=== PATIENT | male | born 1940 | race Caucasian/White ===

== ENCOUNTER 2018-10-20 14:15 | Outpatient (CLI) | payer MEDICARE, BC ==
--- NOTE | 2018-10-20 14:51 | RAD ---
CHEST TWO VIEWS: HISTORY: Cough and shortness of breath for several days with fever. FINDINGS: There are fairly prominent increased linear and interstitial parenchymal changes noted diffusely bila terally, somewhat more focally prominent in the right upper lobe and right lower lobe, certainly rais ing concern for the possibility of bilateral atypical pneumonia or pneumonitis. Certainly, some of t hese changes could be related to chronic interstitial lung disease. I would recommend consideration for treatment for pneumonia and then a short-term follow-up study in two to three weeks. No prior ex ams. IMPRESSION: Bilateral linear and interstitial parenchymal changes, somewhat more prominent in the right upper lob e and right lower lobe, raising concern for atypical pneumonia or pneumonitis. Treatment and followu p are suggested. POS: [facility]
== END 2018-10-20 14:16 | disposition home or self-care (01) ==
LOC: SCSRAD 14:15
PROVIDERS: ATTEND Family Medicine
DX: J18.0 Bronchopneumonia, unspecified organism (principal); R91.8 Other nonspecific abnormal finding of lung field
CPT/HCPCS: 71046

== ENCOUNTER 2024-02-20 03:06 | Inpatient (IN) | payer MEDICARE ==
[2024-02-20 03:40] LABS: #Basophils 0.04 10x3/uL (0.0-0.2); #Eosinophils Less than 0.03 10x3/uL (0.0-0.7); %Basophils 0.2 % (0.0-1.0); %Eosinophils 0.1 % (0.0-10.0); %Lymphocytes 15.3 % (21.0-51.0); %Monocytes 7.1 % (0.0-10.0); %Neutrophils 76.1 % (42.0-75.0); Hematocrit 25.7 % (42.0-52.0); Hemoglobin 7.9 g/dL (14.0-18.0); Mean Corpuscular HGB CONC 30.7 g/dL (32.0-36.0); Mean Platelet Volume 10.6 fL (7.4-10.4); Platelet Count 244 10x3/uL (130-400); RBC Distribution Width 21.3 % (11.5-14.5); Red Blood Cell (RBC) Count 2.47 mill/uL (4.70-6.10)
[2024-02-20 03:53] LABS: INR-International Normal Ratio 1.1; Prothrombin Time 14.5 sec (12.0-14.7)
[2024-02-20 03:54] LABS: PTT 30.5 sec (22.9-36.1)
[2024-02-20 03:59] LABS: Troponin I Less than 0.010 ng/mL (< 0.028)
[2024-02-20] MEDS ORDERED: Sodium Chloride 0.9% 100 ML ONE (04:11)
[2024-02-20] MEDS ORDERED: cefTRIAXone (ROCEPHIN) 2 GM VIAL ONE (04:11)
[2024-02-20 04:17] LABS: ALT (SGPT) 17 U/L (8-55); AST (SGOT) 28 U/L (5-34); Albumin 2.3 g/dL (3.4-4.8); Alkaline Phosphatase 292 U/L (40-110); Anion Gap 14 mmol/L (10-20); BUN (Urea Nitrogen) 13 mg/dL (8.4-25.7); Bilirubin, Total 0.5 mg/dL (0.2-1.2); Calc. Creatinine Clearance 0 mL/min (70-130); Calcium 6.9 mg/dL (7.8-10.44); Carbon Dioxide 22 mmol/L (23-31); Chloride 105 mmol/L (98-107); Estimated GFR 92; Globulin 2.3 g/dL (2.4-3.5); Glucose 218 mg/dL (83-110); Potassium 3.9 mmol/L (3.5-5.1); Protein, Total 4.6 g/dL (5.8-8.1); Sodium 137 mmol/L (136-145)
[2024-02-20] MEDS ORDERED: Azithromycin 500 MG VIAL ONE (04:29)
[2024-02-20] MEDS ORDERED: Acetaminophen 325 MG TAB PO PRN (05:50)
[2024-02-20] MEDS ORDERED: Ondansetron PF 4 MG/2 ML Vial IVP PRN (05:50)
[2024-02-20] MEDS ORDERED: Dextrose 50% Abboject 50 ML SYRINGE SLOW IVP PRN (05:51)
[2024-02-20] MEDS ORDERED: Dextrose 5% in Water 1,000 ML IV PRN (05:51)
[2024-02-20] MEDS ORDERED: Glucagon 1 MG/ML KIT IM PRN (05:51)
[2024-02-20] MEDS ORDERED: VANCOMYCIN IVPB PRN (05:52)
[2024-02-20] MEDS ORDERED: Ipratropium/Albuterol 3 ML NEB EZPAP PRN (07:17)
[2024-02-20 07:32] VITALS: BMI 22.3
[2024-02-20] MEDS: Insulin Lispro 100 UNIT/ML 10 ML VIAL SC PRN (08:14)
[2024-02-20] MEDS: guaiFENesin/DM ER PO SCH (08:15)
[2024-02-20] MEDS: Vancomycin (BATCH) 1.75 GM in Premix 1 BAG IVPB SCH (08:15)
[2024-02-20] MEDS: Enoxaparin 40 MG (0.4 mL) SYRINGE SC SCH (08:15)
[2024-02-20] MEDS: Pantoprazole DR 40 MG TAB PO SCH (08:15)
[2024-02-20] MEDS: Furosemide 20 MG (2 mL) VIAL SLOW IVP SCH (08:15)
[2024-02-20 09:34] LABS: Influenza A by NAA Not Detected (NotDetected); Influenza B by NAA Not Detected (NotDetected); SARS-CoV-2 NAA Rapid Test Not Detected (NotDetected)
[2024-02-20 10:04] LABS: Legionella Urinary Ag Negative (Negative); Strep pneumo Urine Ag POSITIVE (NEGATIVE)
[2024-02-20 10:19] LABS: Hematocrit 29.1 % (42.0-52.0); Hemoglobin 9.1 g/dL (14.0-18.0); Mean Corpuscular HGB CONC 31.3 g/dL (32.0-36.0); Mean Corpuscular Hemoglobin 32.6 pg (27.0-31.0); Mean Corpuscular Volume 104.3 fL (78.0-98.0); Mean Platelet Volume 10.3 fL (7.4-10.4); Platelet Count 233 10x3/uL (130-400); RBC Distribution Width 21.8 % (11.5-14.5); Red Blood Cell (RBC) Count 2.79 mill/uL (4.70-6.10)
[2024-02-20 10:42] LABS: Anisocytosis MARKED = >30 cells HPF (0-5); Band 5 % (5-11); Lymphocytes 4 % (21-51); Macrocytosis MODERATE=16-30 cells HPF (0-5); Monocytes 3 % (0-10); Neutrophil 87 % (42-75); Ovalocytes SLIGHT = 2-5 cells HPF (0-1); Platelet Adequacy Comment Platelets Normal; Polychromasia MODERATE = 3-4 cells HPF (0-2); Reactive Lymphocytes 1 % (0-10)
[2024-02-20] MEDS ORDERED: Iopamidol-370 76% 500 ML MDV (1 ML CHARGE) ONE (12:55)
[2024-02-20] MEDS: Ipratropium/Albuterol 3 ML NEB EZPAP SCH (13:00)
[2024-02-20 15:03] LABS: Campy jejuni + coli by PCR Negative (Negative); STEC Shiga Toxin 1+2 Negative (Negative); Salmonella spp. by PCR Negative (Negative); Shigella spp + EIEC by PCR Negative (Negative)
[2024-02-20] MEDS: Cefepime 2 GM in Sodium Chloride 0.9% 100 ML IVPB SCH (16:25)
[2024-02-20] MEDS ORDERED: Cefepime 1 GM in Sodium Chloride 0.9% 100 ML IVPB SCH (21:00)
[2024-02-20] MEDS: Vancomycin 1 GM in Premix 1 BAG IVPB SCH (21:09)
[2024-02-21 05:00] LABS: #Basophils Less than 0.03 10x3/uL (0.0-0.2); #Eosinophils Less than 0.03 10x3/uL (0.0-0.7); %Basophils 0.1 % (0.0-1.0); %Lymphocytes 10.3 % (21.0-51.0); %Monocytes 6.1 % (0.0-10.0); %Neutrophils 81.8 % (42.0-75.0); Hematocrit 24.4 % (42.0-52.0); Hemoglobin 7.6 g/dL (14.0-18.0); Mean Corpuscular HGB CONC 31.1 g/dL (32.0-36.0); Mean Corpuscular Hemoglobin 31.5 pg (27.0-31.0); Mean Corpuscular Volume 101.2 fL (78.0-98.0); Mean Platelet Volume 11.2 fL (7.4-10.4); Platelet Count 228 10x3/uL (130-400); RBC Distribution Width 21.2 % (11.5-14.5); Red Blood Cell (RBC) Count 2.41 mill/uL (4.70-6.10)
[2024-02-21 05:15] LABS: Vancomycin, Random 18.3 ug/mL (See Comment)
[2024-02-21 05:24] LABS: ALT (SGPT) 15 U/L (8-55); AST (SGOT) 19 U/L (5-34); Albumin 2.1 g/dL (3.4-4.8); Alkaline Phosphatase 265 U/L (40-110); Bilirubin, Direct 0.2 mg/dL (0.1-0.3); Bilirubin, Total 0.3 mg/dL (0.2-1.2); Protein, Total 4.7 g/dL (5.8-8.1)
[2024-02-21 05:57] LABS: Anion Gap 13 mmol/L (10-20); BUN (Urea Nitrogen) 13 mg/dL (8.4-25.7); Calc. Creatinine Clearance 89 mL/min (70-130); Calcium 7.2 mg/dL (7.8-10.44); Carbon Dioxide 25 mmol/L (23-31); Estimated GFR 95; Glucose 261 mg/dL (83-110)
[2024-02-21] MEDS: Insulin Lispro 100 UNIT/ML 10 ML VIAL SC PRN (06:05)
[2024-02-21 06:08] LABS: Chloride 104 mmol/L (98-107); Potassium 3.9 mmol/L (3.5-5.1); Sodium 137 mmol/L (136-145)
[2024-02-21] MEDS: FLU (Fluad Triv) TS24-25 (65UP)/MF59C/PF 45 MCG/0.5 ML Syringe IM ONE (09:32)
[2024-02-21] MEDS: Furosemide 20 MG (2 mL) VIAL SLOW IVP SCH (09:32)
[2024-02-21] MEDS: Cefepime 2 GM in Sodium Chloride 0.9% 100 ML IVPB SCH (15:56)
[2024-02-22 05:06] LABS: #Basophils Less than 0.03 10x3/uL (0.0-0.2); #Eosinophils Less than 0.03 10x3/uL (0.0-0.7); %Basophils 0.1 % (0.0-1.0); %Eosinophils 0.1 % (0.0-10.0); %Lymphocytes 10.1 % (21.0-51.0); %Monocytes 6.5 % (0.0-10.0); %Neutrophils 81.3 % (42.0-75.0); Hematocrit 23.8 % (42.0-52.0); Hemoglobin 7.4 g/dL (14.0-18.0); Mean Corpuscular HGB CONC 31.1 g/dL (32.0-36.0); Mean Corpuscular Hemoglobin 31.4 pg (27.0-31.0); Mean Corpuscular Volume 100.8 fL (78.0-98.0); Platelet Count 217 10x3/uL (130-400); RBC Distribution Width 21.7 % (11.5-14.5); Red Blood Cell (RBC) Count 2.36 mill/uL (4.70-6.10)
[2024-02-22 05:26] LABS: Anion Gap 13 mmol/L (10-20); BUN (Urea Nitrogen) 14 mg/dL (8.4-25.7); Calc. Creatinine Clearance 78 mL/min (70-130); Carbon Dioxide 26 mmol/L (23-31); Chloride 105 mmol/L (98-107); Estimated GFR 91; Glucose 282 mg/dL (83-110); Potassium 3.6 mmol/L (3.5-5.1); Sodium 140 mmol/L (136-145)
[2024-02-22] MEDS: Insulin Regular, Human 100 UNIT/ML 10 ML VIAL SC SCH (11:27)
[2024-02-22] MEDS: Furosemide 20 MG (2 mL) VIAL SLOW IVP SCH (14:05)
[2024-02-22] MEDS ORDERED: Sodium Chloride 0.65% Nasal 44 ML BOT EA NARE PRN (18:05)
[2024-02-22] MEDS: Vancomycin HCl 750 MG in Sodium Chloride 0.9% 250 ML 250 ML IVPB SCH (22:14)
[2024-02-22] MEDS: Insulin Glargine 30 UNITS/0.3 ML VIAL SC SCH (22:14)
[2024-02-23 03:27] LABS: #Basophils 0.03 10x3/uL (0.0-0.2); %Basophils 0.2 % (0.0-1.0); %Eosinophils 0.3 % (0.0-10.0); %Lymphocytes 12.3 % (21.0-51.0); %Monocytes 8.8 % (0.0-10.0); %Neutrophils 75.3 % (42.0-75.0); Hematocrit 26.2 % (42.0-52.0); Hemoglobin 8.2 g/dL (14.0-18.0); Mean Corpuscular HGB CONC 31.3 g/dL (32.0-36.0); Mean Corpuscular Hemoglobin 31.8 pg (27.0-31.0); Mean Corpuscular Volume 101.6 fL (78.0-98.0); Mean Platelet Volume 10.1 fL (7.4-10.4); Platelet Count 248 10x3/uL (130-400); RBC Distribution Width 21.1 % (11.5-14.5); Red Blood Cell (RBC) Count 2.58 mill/uL (4.70-6.10)
[2024-02-23 03:31] LABS: Actual Bicarbonate (HCO3v) 32.9 mEq/L (22-28); Base Excess 8.9 mEq/L (-2.0 to +3.0); Calcium, Ionized (venous) 0.98 mmol/L (1.16-1.32); Chloride (VBG) 100 mmol/L (98-106); Hematocrit-VBG 27 % (42.0-52.0); Hemoglobin (Hb) 9.3 g/dL (12.6-17.4); Potassium (VBG) 2.84 mmol/L (3.70-5.30); Sodium 139 mmol/L (133-146); pH (venous) 7.501 (7.32-7.43)
[2024-02-23 03:42] LABS: Lactic Acid 0.47 mmol/L (0.5-2.2)
[2024-02-23 03:44] LABS: Vancomycin, Random 22.1 ug/mL (See Comment)
[2024-02-23 03:52] LABS: Troponin I Less than 0.010 ng/mL (< 0.028)
[2024-02-23 05:03] LABS: ALT (SGPT) 14 U/L (8-55); AST (SGOT) 32 U/L (5-34); Albumin 2.3 g/dL (3.4-4.8); Alkaline Phosphatase 252 U/L (40-110); Anion Gap 10 mmol/L (10-20); BUN (Urea Nitrogen) 12 mg/dL (8.4-25.7); Bilirubin, Total 0.4 mg/dL (0.2-1.2); Calc. Creatinine Clearance 94 mL/min (70-130); Carbon Dioxide 32 mmol/L (23-31); Chloride 102 mmol/L (98-107); Estimated GFR 96; Globulin 2.5 g/dL (2.4-3.5); Glucose Less than 7 mg/dL (83-110); Magnesium 1.7 mg/dL (1.6-2.6); Potassium 2.9 mmol/L (3.5-5.1); Protein, Total 4.8 g/dL (5.8-8.1); Sodium 141 mmol/L (136-145)
[2024-02-23] MEDS: Potassium Chloride 20 MEQ in Premix 1 BAG IVPB SCH (06:02)
[2024-02-23 12:32] LABS: Anion Gap 11 mmol/L (10-20); BUN (Urea Nitrogen) 11 mg/dL (8.4-25.7); Calc. Creatinine Clearance 97 mL/min (70-130); Calcium 7.3 mg/dL (7.8-10.44); Carbon Dioxide 30 mmol/L (23-31); Chloride 104 mmol/L (98-107); Estimated GFR 97; Glucose 78 mg/dL (83-110); Magnesium 1.7 mg/dL (1.6-2.6); Potassium 4.1 mmol/L (3.5-5.1); Sodium 141 mmol/L (136-145)
[2024-02-23 13:52] LABS: Anion Gap 14 mmol/L (10-20); BUN (Urea Nitrogen) 10 mg/dL (8.4-25.7); Calc. Creatinine Clearance 85 mL/min (70-130); Calcium 7.6 mg/dL (7.8-10.44); Carbon Dioxide 28 mmol/L (23-31); Chloride 103 mmol/L (98-107); Estimated GFR 93; Glucose 96 mg/dL (83-110); Potassium 3.7 mmol/L (3.5-5.1); Sodium 141 mmol/L (136-145)
[2024-02-24 05:08] LABS: #Basophils 0.03 10x3/uL (0.0-0.2); %Basophils 0.2 % (0.0-1.0); %Lymphocytes 15.3 % (21.0-51.0); %Monocytes 8.3 % (0.0-10.0); %Neutrophils 73.4 % (42.0-75.0); Hematocrit 26.7 % (42.0-52.0); Hemoglobin 8.2 g/dL (14.0-18.0); Mean Corpuscular HGB CONC 30.7 g/dL (32.0-36.0); Mean Corpuscular Hemoglobin 31.7 pg (27.0-31.0); Mean Corpuscular Volume 103.1 fL (78.0-98.0); Platelet Count 188 10x3/uL (130-400); RBC Distribution Width 21.2 % (11.5-14.5); Red Blood Cell (RBC) Count 2.59 mill/uL (4.70-6.10)
[2024-02-24 05:30] LABS: Hemoglobin A1c 7.3 % (4.0-6.0)
[2024-02-24 05:31] LABS: Anion Gap 12 mmol/L (10-20); BUN (Urea Nitrogen) 10 mg/dL (8.4-25.7); Calc. Creatinine Clearance 88 mL/min (70-130); Calcium 7.3 mg/dL (7.8-10.44); Carbon Dioxide 26 mmol/L (23-31); Chloride 104 mmol/L (98-107); Estimated GFR 95; Glucose 245 mg/dL (83-110); Potassium 3.5 mmol/L (3.5-5.1); Sodium 138 mmol/L (136-145)
[2024-02-24] MEDS: Zinc Sulfate 220 MG CAP PO SCH (10:06)
[2024-02-24] MEDS: Clopidogrel Bisulfate 75 MG TAB PO SCH (10:06)
[2024-02-24] MEDS: metFORMIN 500 MG TAB PO SCH (10:06)
[2024-02-24] MEDS: Metoprolol Tartrate 25 MG TAB PO SCH (10:07)
[2024-02-24] MEDS: Lisinopril 20 MG TAB PO SCH (10:07)
[2024-02-24] MEDS: Amlodipine 5 MG TAB PO SCH (10:07)
[2024-02-24] MEDS: Icosapent Ethyl 1 GM CAPSULE PO SCH (10:07)
[2024-02-24 12:00] VITALS: BP 127/58; TEMP 98.1
[2024-02-24] MEDS ORDERED: Latanoprostene Bunod [Vyzulta] 5 ML Drops EA EYE SCH (21:00)
[2024-02-24] MEDS ORDERED: Rosuvastatin 10 MG TAB PO SCH (21:00)
[2024-02-24] MEDS ORDERED: Magnesium Oxide 400 MG TAB PO SCH (21:00)
[2024-02-24] MEDS ORDERED: CO Q-10 CAPSULE 100 MG PO SCH (21:00)
== END 2024-02-24 15:30 | DRG 871 ==
LOC: ERS 03:06 → ERHOLD 05:27 → IMCU/EMU 07:02 → 2NO 17:50
PROVIDERS: ADMIT Internal Medicine; ATTEND Family Medicine
DX: A41.9 Sepsis, unspecified organism (principal); I50.33 Acute on chronic diastolic (congestive) heart failure; J96.21 Acute and chronic respiratory failure with hypoxia; J18.9 Pneumonia, unspecified organism; J44.1 Chronic obstructive pulmonary disease with (acute) exacerbation; C34.2 Malignant neoplasm of middle lobe, bronchus or lung; C79.51 Secondary malignant neoplasm of bone; R19.7 Diarrhea, unspecified; E11.649 Type 2 diabetes mellitus with hypoglycemia without coma; I48.91 Unspecified atrial fibrillation; E78.5 Hyperlipidemia, unspecified; E11.51 Type 2 diabetes mellitus with diabetic peripheral angiopathy without gangrene; I11.0 Hypertensive heart disease with heart failure; F03.90 Unspecified dementia, unspecified severity, without behavioral disturbance, psychotic disturbance, mood disturbance, and anxiety; K21.9 Gastro-esophageal reflux disease without esophagitis; D64.9 Anemia, unspecified; E83.51 Hypocalcemia; J84.10 Pulmonary fibrosis, unspecified; Z99.81 Dependence on supplemental oxygen; Z87.891 Personal history of nicotine dependence
CPT/HCPCS: 36415; 36416; 70450; 71045; 71275; 80048; 80053; 80076; 80202; 82805; 83036; 83605; 83735; 83880; 84484; 85025; 85610; 85730; 87040; 87081; 87324; 87449; 87505; 87899; 93005; 94640; 96365; 96367; J0456; J0692; J0696; J1650; J1815; J1940; J3370; J3370-JW; J3480; J7050; J7620; Q9967

== ENCOUNTER 2024-03-09 22:41 | Inpatient (IN) | payer MEDICARE ==
[2024-03-09 23:11] LABS: #Basophils Less than 0.03 10x3/uL (0.0-0.2); #Eosinophils Less than 0.03 10x3/uL (0.0-0.7); %Basophils 0.1 % (0.0-1.0); %Eosinophils 0.1 % (0.0-10.0); %Lymphocytes 12.6 % (21.0-51.0); %Monocytes 3.4 % (0.0-10.0); %Neutrophils 82.1 % (42.0-75.0); Hematocrit 28.8 % (42.0-52.0); Hemoglobin 8.8 g/dL (14.0-18.0); Mean Corpuscular HGB CONC 30.6 g/dL (32.0-36.0); Mean Corpuscular Hemoglobin 30.8 pg (27.0-31.0); Mean Corpuscular Volume 100.7 fL (78.0-98.0); Mean Platelet Volume 10.7 fL (7.4-10.4); Platelet Count 206 10x3/uL (130-400); RBC Distribution Width 22.2 % (11.5-14.5); Red Blood Cell (RBC) Count 2.86 mill/uL (4.70-6.10)
[2024-03-09 23:29] LABS: ALT (SGPT) 34 U/L (8-55); AST (SGOT) 94 U/L (5-34); Albumin 2.4 g/dL (3.4-4.8); Alkaline Phosphatase 462 U/L (40-110); Anion Gap 18 mmol/L (10-20); BUN (Urea Nitrogen) 17 mg/dL (8.4-25.7); Bilirubin, Total 0.5 mg/dL (0.2-1.2); Calc. Creatinine Clearance 0 mL/min (70-130); Calcium 7.3 mg/dL (7.8-10.44); Carbon Dioxide 25 mmol/L (23-31); Chloride 102 mmol/L (98-107); Estimated GFR 91; Glucose 56 mg/dL (83-110); Potassium 3.6 mmol/L (3.5-5.1); Protein, Total 5.4 g/dL (5.8-8.1); Sodium 141 mmol/L (136-145)
[2024-03-09 23:31] LABS: Troponin I Less than 0.010 ng/mL (< 0.028)
[2024-03-10] MEDS ORDERED: Dexamethasone 10 MG/ML VIAL ONE (00:32)
[2024-03-10] MEDS ORDERED: Magnesium 2 GM/50 ML BAG (IN WATER) ONE (00:32)
[2024-03-10] MEDS ORDERED: LevoFLOXacin 750 mg/D5W 150 ml Premix Bag ONE (00:32)
[2024-03-10] MEDS ORDERED: Cefepime 1 GM VIAL ONE (02:06)
[2024-03-10] MEDS ORDERED: Cefepime 2 GM VIAL ONE (02:07)
[2024-03-10] MEDS ORDERED: Sodium Chloride 0.9% 100 ML ONE (02:07)
[2024-03-10] MEDS ORDERED: Albuterol 2.5 MG (0.5 mL) NEB ONE (03:05)
[2024-03-10] MEDS ORDERED: Ipratropium/Albuterol 3 ML NEB ONE (03:06)
[2024-03-10] MEDS ORDERED: Albuterol 2.5 MG (3 mL) NEB ONE (03:06)
[2024-03-10] MEDS ORDERED: NOREPINEPHRINE 8 MG/250 ML-D5W 250 ML ONE (03:58)
[2024-03-10] MEDS ORDERED: Dextrose 50% Abboject 50 ML SYRINGE SLOW IVP PRN (04:33)
[2024-03-10] MEDS ORDERED: Glucagon 1 MG/ML KIT IM PRN (04:33)
[2024-03-10] MEDS ORDERED: Insulin Lispro 100 UNIT/ML 10 ML VIAL SC PRN (04:33)
[2024-03-10] MEDS ORDERED: Dextrose 5% in Water 1,000 ML IV PRN (04:33)
[2024-03-10] MEDS ORDERED: traMADol HCl 50 MG TAB PO PRN (04:40)
[2024-03-10] MEDS ORDERED: Ondansetron ODT 4 MG TAB PO PRN (04:40)
[2024-03-10] MEDS ORDERED: Ondansetron PF 4 MG/2 ML Vial IVP PRN (04:40)
[2024-03-10] MEDS ORDERED: Acetaminophen 325 MG TAB PO PRN (04:40)
[2024-03-10] MEDS ORDERED: HYDROcodone/Acetaminophen 5/325 mg Tablet PO PRN (04:41)
[2024-03-10] MEDS ORDERED: NOREPINEPHRINE 8 MG/250 ML-D5W 250 ML IVPB SCH (04:45)
[2024-03-10 05:01] LABS: Bilirubin Negative (Negative); Blood, Urine Negative (Negative); CAUTI Indications for Culture Alt mental st,lethar; Clarity Clear (Clear); Glucose, Urine (Dipstick) Normal (Negative); Ketone, Urine Negative (Negative); Leukocyte Negative Leu/uL (Negative); Nitrite Negative (Negative); Protein, Urine (Dipstick) 30 mg/dL (Neg-Trace); RBC/HPF 0-3 HPF (0-3); Specific Gravity, Urine 1.008 (1.002-1.036); Squamous Epithelial None Seen HPF (0-3); Urobilinogen Normal mg/dL (Less than 2); WBC/HPF 0-3 HPF (0-3)
[2024-03-10 05:04] LABS: Bacteria/HPF 1+ HPF (None Seen); Urine Culture Reflex No No
[2024-03-10] MEDS: Digoxin 0.5 MG/2 ML AMP SLOW IVP SCH (05:35)
[2024-03-10 06:02] VITALS: BMI 21.6
[2024-03-10] MEDS: Digoxin 0.5 MG/2 ML AMP ONE (06:07)
[2024-03-10] MEDS: Vancomycin (BATCH) 1.75 GM in Premix 1 BAG IVPB SCH (06:07)
[2024-03-10] MEDS: dilTIAZem 25 MG/5 ML VIAL ONE (06:30)
[2024-03-10] MEDS: Sodium Chloride 0.9% 1,000 ML IV SCH (06:30)
[2024-03-10] MEDS: Albumin 25% 25 GM (100 mL) BOT IVPB SCH (06:31)
[2024-03-10] MEDS: dilTIAZem 25 MG/5 ML VIAL SLOW IVP SCH ×2 (06:40→07:19)
[2024-03-10] MEDS: Sodium Chloride 0.9% 500 ML IV SCH (06:40)
[2024-03-10] MEDS: fentaNYL 50 mcg/mL 1 mL Vial ONE (07:17)
[2024-03-10] MEDS: Fentanyl 100 MCG/2 ML VIAL SLOW IVP SCH (07:19)
[2024-03-10] MEDS: Amiodarone 450 MG in Dextrose 5% in Water 250 ML IVPB SCH ×2 (07:20→15:42)
[2024-03-10] MEDS ORDERED: Vasopressin 20 UNITS in Sodium Chloride 0.9% 50 ML IV SCH (07:45)
[2024-03-10] MEDS: Vasopressin In 0.9 % NaCl 40 UNIT in Premix 1 BAG IV SCH (08:17)
[2024-03-10] MEDS: Hydrocortisone Sod Succ/PF 100 mg/2 ml Vial IVP SCH (08:17)
[2024-03-10] MEDS ORDERED: Famotidine 20 MG TAB PO SCH (09:00)
[2024-03-10] MEDS: Pantoprazole DR 40 MG TAB PO SCH (09:48)
[2024-03-10] MEDS: Enoxaparin 40 MG (0.4 mL) SYRINGE SC SCH (09:48)
[2024-03-10] MEDS: Cefepime 2 GM in Sodium Chloride 0.9% 100 ML IVPB SCH (09:49)
[2024-03-10] MEDS: Clopidogrel Bisulfate 75 MG TAB PO SCH (09:49)
[2024-03-10 10:11] LABS: Lactic Acid 2.63 mmol/L (0.5-2.2)
[2024-03-10] MEDS: Insulin Lispro 100 UNIT/ML 10 ML VIAL SC PRN (12:30)
[2024-03-10] MEDS: Vancomycin 1 GM in Premix 1 BAG IVPB SCH (13:40)
[2024-03-10] MEDS: FLU (Fluad Triv) TS24-25 (65UP)/MF59C/PF 45 MCG/0.5 ML Syringe IM ONE (13:41)
[2024-03-10] MEDS: Rosuvastatin 10 MG TAB PO SCH (20:58)
[2024-03-10] MEDS ORDERED: Latanoprostene Bunod [Vyzulta] 5 ML Drops EA EYE SCH (21:00)
[2024-03-11 04:17] LABS: #Basophils Less than 0.03 10x3/uL (0.0-0.2); #Eosinophils Less than 0.03 10x3/uL (0.0-0.7); %Basophils 0.1 % (0.0-1.0); %Lymphocytes 6.3 % (21.0-51.0); %Monocytes 4.2 % (0.0-10.0); %Neutrophils 88.1 % (42.0-75.0); Hematocrit 22.5 % (42.0-52.0); Hemoglobin 6.9 g/dL (14.0-18.0); Mean Corpuscular HGB CONC 30.7 g/dL (32.0-36.0); Mean Corpuscular Hemoglobin 31.1 pg (27.0-31.0); Mean Corpuscular Volume 101.4 fL (78.0-98.0); Mean Platelet Volume 10.9 fL (7.4-10.4); Platelet Count 184 10x3/uL (130-400); RBC Distribution Width 22.2 % (11.5-14.5); Red Blood Cell (RBC) Count 2.22 mill/uL (4.70-6.10)
[2024-03-11 04:42] LABS: ALT (SGPT) 24 U/L (8-55); AST (SGOT) 41 U/L (5-34); Alkaline Phosphatase 347 U/L (40-110); Anion Gap 11 mmol/L (10-20); BUN (Urea Nitrogen) 16 mg/dL (8.4-25.7); Bilirubin, Total 0.4 mg/dL (0.2-1.2); Calc. Creatinine Clearance 97 mL/min (70-130); Calcium 7.6 mg/dL (7.8-10.44); Carbon Dioxide 25 mmol/L (23-31); Chloride 109 mmol/L (98-107); Digoxin 0.47 ng/mL (0.8-2.0); Estimated GFR 99; Globulin 2.7 g/dL (2.4-3.5); Glucose 87 mg/dL (83-110); Protein, Total 4.7 g/dL (5.8-8.1); Sodium 142 mmol/L (136-145)
[2024-03-11 04:45] LABS: Vancomycin, Random 25.3 ug/mL (See Comment)
[2024-03-11] MEDS ORDERED: Electrolyte Replacement Protocol 1 EACH FS PRN (05:23)
[2024-03-11] MEDS: Potassium Chloride 20 MEQ TAB PO SCH (06:21)
[2024-03-11] MEDS: Insulin Glargine 30 UNITS/0.3 ML VIAL SC SCH (08:24)
[2024-03-11] MEDS: Magnesium 2 GM/50 ML(in water) 2 GM in Premix 1 BAG IVPB SCH (08:24)
[2024-03-11] MEDS ORDERED: Electrolyte Replacement Protocol FS PRN (08:45)
[2024-03-11 10:12] LABS: Hematocrit 23.8 % (42.0-52.0); Hemoglobin 7.3 g/dL (14.0-18.0); Mean Corpuscular HGB CONC 30.7 g/dL (32.0-36.0); Mean Corpuscular Hemoglobin 30.5 pg (27.0-31.0); Mean Corpuscular Volume 99.6 fL (78.0-98.0); Mean Platelet Volume 11.3 fL (7.4-10.4); Platelet Count 175 10x3/uL (130-400); RBC Distribution Width 21.9 % (11.5-14.5); Red Blood Cell (RBC) Count 2.39 mill/uL (4.70-6.10)
[2024-03-11] MEDS: VANCOMYCIN 1.25 GM/250 ML BAG 1.25 GM in Premix 1 BAG IVPB SCH (14:36)
[2024-03-11] MEDS: Ipratropium/Albuterol 3 ML NEB NEB PRN (23:10)
[2024-03-12 05:10] LABS: #Basophils Less than 0.03 10x3/uL (0.0-0.2); #Eosinophils Less than 0.03 10x3/uL (0.0-0.7); %Basophils 0.1 % (0.0-1.0); %Lymphocytes 5.2 % (21.0-51.0); %Monocytes 4.5 % (0.0-10.0); %Neutrophils 87.6 % (42.0-75.0); Hematocrit 22.3 % (42.0-52.0); Hemoglobin 6.8 g/dL (14.0-18.0); Mean Corpuscular HGB CONC 30.5 g/dL (32.0-36.0); Mean Corpuscular Hemoglobin 31.2 pg (27.0-31.0); Mean Corpuscular Volume 102.3 fL (78.0-98.0); Mean Platelet Volume 10.7 fL (7.4-10.4); Platelet Count 197 10x3/uL (130-400); RBC Distribution Width 22.2 % (11.5-14.5); Red Blood Cell (RBC) Count 2.18 mill/uL (4.70-6.10)
[2024-03-12 05:32] LABS: Anion Gap 12 mmol/L (10-20); BUN (Urea Nitrogen) 14 mg/dL (8.4-25.7); Calc. Creatinine Clearance 87 mL/min (70-130); Calcium 7.4 mg/dL (7.8-10.44); Carbon Dioxide 24 mmol/L (23-31); Chloride 109 mmol/L (98-107); Estimated GFR 95; Glucose 182 mg/dL (83-110); Potassium 3.3 mmol/L (3.5-5.1); Sodium 142 mmol/L (136-145)
[2024-03-12] MEDS: Magnesium 2 GM/50 ML(in water) 2 GM in Premix 1 BAG IVPB SCH (11:40)
[2024-03-12] MEDS: Hydrocortisone Sod Succ/PF 100 mg/2 ml Vial IVP SCH (11:41)
[2024-03-12] MEDS: Potassium Chloride 20 MEQ TAB PO SCH (11:41)
[2024-03-12] MEDS: Furosemide 20 MG (2 mL) VIAL SLOW IVP SCH (14:44)
[2024-03-13] MEDS: Vancomycin 1 GM in Premix 1 BAG IVPB SCH (00:47)
[2024-03-13] MEDS: Furosemide 20 MG (2 mL) VIAL SLOW IVP SCH ×2 (00:47→08:49)
[2024-03-13] MEDS ORDERED: Amiodarone 450 MG in Dextrose 5% in Water 250 ML IVPB SCH (03:45)
[2024-03-13 07:19] LABS: Hematocrit 28.6 % (42.0-52.0); Hemoglobin 9.1 g/dL (14.0-18.0); Mean Corpuscular HGB CONC 31.8 g/dL (32.0-36.0); Mean Corpuscular Hemoglobin 30.6 pg (27.0-31.0); Mean Corpuscular Volume 96.3 fL (78.0-98.0); Mean Platelet Volume 10.9 fL (7.4-10.4); Platelet Count 204 10x3/uL (130-400); RBC Distribution Width 22.5 % (11.5-14.5); Red Blood Cell (RBC) Count 2.97 mill/uL (4.70-6.10)
[2024-03-13 07:27] LABS: Vancomycin, Random 38.7 ug/mL (See Comment)
[2024-03-13 07:33] LABS: Anion Gap 14 mmol/L (10-20); BUN (Urea Nitrogen) 12 mg/dL (8.4-25.7); Calc. Creatinine Clearance 85 mL/min (70-130); Calcium 7.2 mg/dL (7.8-10.44); Carbon Dioxide 27 mmol/L (23-31); Chloride 105 mmol/L (98-107); Estimated GFR 94; Glucose 160 mg/dL (83-110); Magnesium 1.8 mg/dL (1.6-2.6); Potassium 2.4 mmol/L (3.5-5.1); Sodium 144 mmol/L (136-145)
[2024-03-13 07:53] LABS: Band 18 % (5-11); Lymphocytes 3 % (21-51); Metamyelocyte 3 % (0-0); Myelocyte 2 % (0-0); Neutrophil 74 % (42-75); Platelet Adequacy Comment Platelets Normal; Polychromasia MODERATE = 3-4 cells HPF (0-2); Schistocytes SLIGHT = 2-5 cells HPF (0-1)
[2024-03-13] MEDS: Potassium Chloride 20 MEQ TAB PO SCH (08:49)
[2024-03-13] MEDS: Magnesium 2 GM/50 ML(in water) 2 GM in Premix 1 BAG IVPB SCH (08:49)
[2024-03-13] MEDS: Dronedarone HCl 400 MG TAB PO SCH ×2 (14:03→17:34)
[2024-03-13] MEDS: Potassium Bicarbonate/Cit Ac 20 MEQ TAB PO SCH (16:04)
[2024-03-13] MEDS ORDERED: HYDROcodone/Acetaminophen 5/325 mg Tablet PO PRN (17:05)
[2024-03-13 21:17] VITALS: BMI 21.9
[2024-03-13] MEDS: Melatonin 3 MG TAB PO SCH (22:11)
[2024-03-13] MEDS: Icosapent Ethyl 1 GM CAPSULE PO SCH (22:12)
[2024-03-13] MEDS: CO Q-10 CAPSULE 100 MG PO SCH (22:12)
[2024-03-14] MEDS: VANCOMYCIN 1.25 GM/250 ML BAG 1.25 GM in Premix 1 BAG IVPB SCH (00:01)
[2024-03-14 04:59] LABS: #Basophils 0.04 10x3/uL (0.0-0.2); #Eosinophils Less than 0.03 10x3/uL (0.0-0.7); %Basophils 0.2 % (0.0-1.0); %Lymphocytes 7.2 % (21.0-51.0); %Monocytes 4.9 % (0.0-10.0); %Neutrophils 83.6 % (42.0-75.0); Hematocrit 28.4 % (42.0-52.0); Hemoglobin 9.1 g/dL (14.0-18.0); Mean Corpuscular Hemoglobin 30.8 pg (27.0-31.0); Mean Corpuscular Volume 96.3 fL (78.0-98.0); Mean Platelet Volume 10.1 fL (7.4-10.4); Platelet Count 211 10x3/uL (130-400); RBC Distribution Width 22.3 % (11.5-14.5); Red Blood Cell (RBC) Count 2.95 mill/uL (4.70-6.10)
[2024-03-14 05:25] LABS: Vancomycin, Random 41.2 ug/mL (See Comment)
[2024-03-14 05:28] LABS: Anion Gap 8 mmol/L (10-20); BUN (Urea Nitrogen) 14 mg/dL (8.4-25.7); Calc. Creatinine Clearance 79 mL/min (70-130); Calcium 7.3 mg/dL (7.8-10.44); Carbon Dioxide 34 mmol/L (23-31); Chloride 106 mmol/L (98-107); Estimated GFR 93; Glucose 88 mg/dL (83-110); Magnesium 1.9 mg/dL (1.6-2.6); Potassium 3.3 mmol/L (3.5-5.1); Sodium 145 mmol/L (136-145)
[2024-03-14] MEDS: Dextrose 5% in Water 1,000 ML IV SCH (07:51)
[2024-03-14] MEDS ORDERED: MAGNESIUM GLYCINATE 100 MG PO SCH (09:00)
[2024-03-14] MEDS ORDERED: Amlodipine 5 mg/Benazepril 20 mg CAP PO SCH (09:00)
[2024-03-14] MEDS ORDERED: Lisinopril 20 MG TAB PO SCH (09:00)
[2024-03-14] MEDS: Magnesium 2 GM/50 ML(in water) 2 GM in Premix 1 BAG IVPB SCH (09:34)
[2024-03-14] MEDS ORDERED: GASTROGRAFIN 30 ML BOT ONE (11:23)
[2024-03-14] MEDS ORDERED: Iopamidol 370 76% 100 ML VIAL ONE (11:23)
[2024-03-14] MEDS: Lisinopril 10 MG TAB PO SCH (12:58)
[2024-03-14] MEDS: Cyanocobalamin (Vitamin B-12) 1,000 MCG TAB PO SCH (12:58)
[2024-03-14] MEDS: Multivitamin W/ Minerals 1 TAB PO SCH (12:58)
[2024-03-14] MEDS: Potassium Chloride 20 MEQ TAB PO SCH (13:37)
[2024-03-14] MEDS: Potassium Bicarbonate/Cit Ac 20 MEQ TAB PO SCH (13:48)
[2024-03-14] MEDS: Amlodipine 5 MG TAB PO SCH (13:48)
[2024-03-14 15:16] LABS: Adenovirus F 40-41 Not Detected (Not Detected); Astrovirus Not Detected (Not Detected); C. difficile toxin A+B Not Detected (Not Detected); Campylobacter by PCR Not Detected (Not Detected); Cryptosporidium Not Detected (Not Detected); Cyclospora cayetanensis Not Detected (Not Detected); Entamoeba histolytica Not Detected (Not Detected); Enteroaggregative E. coli Not Detected (Not Detected); Enteropathogenic E. coli Not Detected (Not Detected); Enterotoxigenic E. coli Not Detected (Not Detected); Giardia lamblia Not Detected (Not Detected); Norovirus GI-GII Not Detected (Not Detected); Plesiomonas shigelloides Not Detected (Not Detected); Rotavirus A Not Detected (Not Detected); Salmonella Not Detected (Not Detected); Sapovirus Not Detected (Not Detected); Shiga-toxin-producing E coli Not Detected (Not Detected); Shigella/Enteroinvasive E coli Not Detected (Not Detected); Vibrio Not Detected (Not Detected); Vibrio cholerae Not Detected (Not Detected); Yersinia enterocolitica Not Detected (Not Detected)
[2024-03-15 16:51] VITALS: BP 134/65; TEMP 98.2
== END 2024-03-15 17:38 | disposition hospice, inpatient (51) | DRG 871 ==
LOC: ERS 22:41 → ERHOLD 03-10 03:04 → CCU 03-10 05:20 → 2NO 03-11 09:25
PROVIDERS: ADMIT Internal Medicine; ATTEND Internal Medicine
PROC: 3E033XZ Introduction of Vasopressor into Peripheral Vein, Percutaneous Approach (ICD-10-PCS; 2024-03-10)
PROC: 3E02340 Introduction of Influenza Vaccine into Muscle, Percutaneous Approach (ICD-10-PCS; 2024-03-10)
PROC: 30233N1 Transfusion of Nonautologous Red Blood Cells into Peripheral Vein, Percutaneous Approach (ICD-10-PCS; principal; 2024-03-12)
DX: A41.9 Sepsis, unspecified organism (principal); I50.33 Acute on chronic diastolic (congestive) heart failure; R65.21 Severe sepsis with septic shock; R57.0 Cardiogenic shock; J96.11 Chronic respiratory failure with hypoxia; C78.7 Secondary malignant neoplasm of liver and intrahepatic bile duct; L03.90 Cellulitis, unspecified; C79.51 Secondary malignant neoplasm of bone; Z66 Do not resuscitate; J44.9 Chronic obstructive pulmonary disease, unspecified; J84.10 Pulmonary fibrosis, unspecified; E78.2 Mixed hyperlipidemia; Z51.5 Encounter for palliative care; F03.90 Unspecified dementia, unspecified severity, without behavioral disturbance, psychotic disturbance, mood disturbance, and anxiety; Z87.891 Personal history of nicotine dependence; E11.51 Type 2 diabetes mellitus with diabetic peripheral angiopathy without gangrene; I11.0 Hypertensive heart disease with heart failure; K21.9 Gastro-esophageal reflux disease without esophagitis; Z99.81 Dependence on supplemental oxygen; K52.9 Noninfective gastroenteritis and colitis, unspecified; E11.649 Type 2 diabetes mellitus with hypoglycemia without coma; D63.8 Anemia in other chronic diseases classified elsewhere; Z79.02 Long term (current) use of antithrombotics/antiplatelets; Z79.899 Other long term (current) drug therapy; Z79.84 Long term (current) use of oral hypoglycemic drugs; Z79.4 Long term (current) use of insulin; I48.0 Paroxysmal atrial fibrillation; E87.6 Hypokalemia; R53.81 Other malaise
CPT/HCPCS: 36415; 36416; 36430; 36556; 51701; 71045; 71260; 74177; 74230; 80048; 80053; 80162; 80202; 81001; 82533; 82607; 83605; 83735; 83880; 84145; 84484; 85025; 86141; 86850; 86900; 86901; 87086; 87324; 87428; 87449; 87507; 93005; 93306; 93970; 94640; 96365; 96366; 96367; 96368; 96375; 97139; J0282; J0692; J1100; J1160; J1650; J1720; J1815; J1940; J1956; J3010; J3370; J3370-JW; J3475; J7030; J7070; J7611; J7620; P9016; P9047; Q9963; Q9967